=== PATIENT | male | born 1990 | race African-American/Black ===

== ENCOUNTER 2017-05-21 23:15 | Inpatient (IN) | payer SELFPAY ==
[2017-05-22 01:12] LABS: Bilirubin Negative (Negative); Blood, Urine Negative (Negative); Clarity CLEAR (Clear); Glucose, Urine (Dipstick) Negative (Negative); Leukocyte Negative (Negative); Nitrite Negative (Negative); Protein, Urine (Dipstick) Negative (Neg-Trace); Specific Gravity, Urine 1.019 (1.002-1.036); Urobilinogen 0.2 mg/dL (0.2-1.0)
[2017-05-22 01:13] LABS: #Lymphocytes 0.7 thou/uL (1.20-3.40); #Monocytes 0.3 thou/uL (0.11-0.59); #Neutrophils 3.7 thou/uL (1.40-6.50); %Basophils 0.5 % (0.0-1.0); %Eosinophils 0.1 % (0.0-10.0); %Lymphocytes 15.4 % (21.0-51.0); Hemoglobin 10.9 g/dL (14.0-18.0); Mean Corpuscular HGB CONC 34.4 g/dL (32.0-36.0); Mean Corpuscular Hemoglobin 31.2 pg (27.0-31.0); Mean Corpuscular Volume 90.7 fl (80.0-94.0); Mean Platelet Volume 7.3 fL (7.4-10.4); Platelet Count 157 thou/uL (130-400); RBC Distribution Width 11.9 % (11.5-14.5); Red Blood Cell (RBC) Count 3.51 mill/uL (4.70-6.10); White Blood Cell (WBC) Count 4.8 thou/uL (4.8-10.8)
[2017-05-22 01:34] LABS: ALT (SGPT) 11 U/L (8-55); AST (SGOT) 23 U/L (5-34); Albumin 4.1 g/dL (3.5-5.0); Alkaline Phosphatase 45 U/L (40-150); Anion Gap 15 mmol/L (10-20); BUN (Urea Nitrogen) 16 mg/dL (8.9-20.6); Bilirubin, Total 0.6 mg/dL (0.2-1.2); Calc. Creatinine Clearance 0 mL/min (70-130); Calcium 8.7 mg/dL (7.8-10.44); Carbon Dioxide 19 mmol/L (22-29); Chloride 108 mmol/L (98-107); Estimated GFR-MDRD Greater than 90; Globulin 2.5 g/dL (2.4-3.5); Glucose 64 mg/dL (70-105); Lipase 23 U/L (8-78); Magnesium 1.8 mg/dL (1.6-2.6); Potassium 3.9 mmol/L (3.5-5.1); Protein, Total 6.6 g/dL (6.0-8.3); Sodium 138 mmol/L (136-145)
[2017-05-22] MEDS ORDERED: VANCOMYCIN HCL IVPB SCH (03:45)
[2017-05-22] MEDS ORDERED: SODIUM CHLORIDE 0.9% IVPB SCH ×2 (03:45→04:00)
[2017-05-22] MEDS ORDERED: MEROPENEM IVPB SCH (04:00)
[2017-05-22] MEDS ORDERED: Hydrocortisone Sod Succ/PF 100 mg/2 ml Vial IVP SCH (04:00)
[2017-05-22] MEDS ORDERED: Acetaminophen 325 MG TAB PO PRN (04:50)
[2017-05-22] MEDS ORDERED: Ondansetron HCl/PF 4 MG/2 ML Vial IVP PRN (04:50)
[2017-05-22] MEDS ORDERED: Ondansetron ODT 4 MG TAB SL PRN (04:50)
[2017-05-22] MEDS: Sodium Chloride 0.9% 1,000 ML IV SCH ×2 (05:19→14:48)
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
[2017-05-22 11:22] VITALS: BMI 17.0
[2017-05-22] MEDS ORDERED: HYDROcodone/Acetaminophen 5/325 mg Tablet PO PRN (12:05)
[2017-05-22] MEDS ORDERED: Sodium Chloride 0.9% 1,000 ML IV SCH (12:15)
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
[2017-05-22] MEDS ORDERED: ISOVUE-370 76%-LOCM 1 ML ONE (13:22)
[2017-05-22] MEDS ORDERED: Iopamidol 370 76% 50 ML VIAL FS ONE (13:22)
[2017-05-22] MEDS: Hydrocortisone Sod Succ/PF 100 mg/2 ml Vial IVP SCH ×2 (14:50→21:32)
[2017-05-22] MEDS: Famotidine 40 MG/4 ML VIAL SLOW IVP SCH (20:12)
[2017-05-22] MEDS ORDERED: Famotidine/PF 20 mg/2ml Vial SLOW IVP SCH (21:00)
[2017-05-22] MEDS ORDERED: Loperamide HCl 2 MG CAP PO PRN ×2 (21:20)
--- NOTE | 2017-05-22 23:16 | PDOC.EVN ---
Event Note - Event Note Event Note: RN called to address IVF. ER orders gets discontinued 12 hrs after admission. Will start 1/2 NS @ 75 ml/hr. AM to address further adjustment of IVF.
[2017-05-22] MEDS: Sodium Chloride 0.45% 1,000 ML IV SCH (23:43)
[2017-05-23 04:42] LABS: #Basophils 0.1 thou/uL (0.0-0.2); #Lymphocytes 0.7 thou/uL (1.20-3.40); #Monocytes 0.2 thou/uL (0.11-0.59); #Neutrophils 5.5 thou/uL (1.40-6.50); %Basophils 1.3 % (0.0-1.0); %Eosinophils 0.1 % (0.0-10.0); %Lymphocytes 11.4 % (21.0-51.0); %Neutrophils 84.3 % (42.0-75.0); Hemoglobin 9.2 g/dL (14.0-18.0); Mean Corpuscular HGB CONC 33.9 g/dL (32.0-36.0); Mean Corpuscular Hemoglobin 31.2 pg (27.0-31.0); Mean Corpuscular Volume 91.8 fl (80.0-94.0); Mean Platelet Volume 7.6 fL (7.4-10.4); Platelet Count 141 thou/uL (130-400); RBC Distribution Width 11.9 % (11.5-14.5); Red Blood Cell (RBC) Count 2.96 mill/uL (4.70-6.10); White Blood Cell (WBC) Count 6.5 thou/uL (4.8-10.8)
[2017-05-23 04:50] LABS: Anion Gap 10 mmol/L (10-20); BUN (Urea Nitrogen) 11 mg/dL (8.9-20.6); Calc. Creatinine Clearance 81 mL/min (70-130); Calcium 7.9 mg/dL (7.8-10.44); Carbon Dioxide 21 mmol/L (22-29); Chloride 110 mmol/L (98-107); Estimated GFR-MDRD Greater than 90; Glucose 120 mg/dL (70-105); Potassium 3.5 mmol/L (3.5-5.1); Sodium 137 mmol/L (136-145)
[2017-05-23] MEDS: Hydrocortisone Sod Succ/PF 100 mg/2 ml Vial IVP SCH ×3 (05:32→21:26)
[2017-05-23] MEDS ORDERED: CLOMIPHENE CITRATE 50 MG PO SCH (09:00)
[2017-05-23] MEDS ORDERED: FLU VACC QS2017-18 36 mo. & older 0.5 ML SYRINGE IM ONE (09:00)
[2017-05-23] MEDS: Enoxaparin Sodium 40 MG/0.4 ML SYRINGE SC SCH (09:27)
[2017-05-23] MEDS: Famotidine 40 MG/4 ML VIAL SLOW IVP SCH ×2 (09:28→21:26)
--- NOTE | 2017-05-23 13:07 | PDOC.PN ---
- Subjective Encounter Start Date: 05/23/17 Encounter Start Time: 10:30 Patient is seen today, sititng in chaiur and having lunch, pt is alert and oriented. mother in the room. - Objective Resuscitation Status: Resuscitation Status FULL:Full Resuscitation MAR Reviewed: Yes Vital Signs & Weight: Vital Signs (12 hours) Temp Pulse Resp BP Pulse Ox 05/23/17 09:36 98.5 F 78 16 97 05/23/17 07:39 98.5 F 78 16 113/76 97 05/23/17 04:10 98.6 F 76 16 107/69 98 Weight Admit Weight 78 lb 11.2 oz Weight 78 lb 11.2 oz I&O: 05/22/17 05/23/17 05/24/17 06:59 06:59 06:59 Intake Total 4300 Balance 4300 Result Diagrams: 05/23/17 03:51 05/23/17 03:51 Phys Exam - Physical Examination HEENT: PERRLA, moist MMs Neck: no nodes, no JVD Respiratory: no wheezing, no rales Cardiovascular: RRR, no significant murmur Gastrointestinal: soft, non-tender Musculoskeletal: no edema, pulses present Neurological: non-focal Psychiatric: normal affect, A&O x 3 Dx/Plan (1) Septic shock Code(s): A41.9 - SEPSIS, UNSPECIFIED ORGANISM; R65.21 - SEVERE SEPSIS WITH SEPTIC SHOCK Status: Acute Comment: Pt has posiitve lactoferrin in stool, but no organism identified, Cdiff neg, Campylo neg, stool culture pending, normal WBC, blood pressures improved on IV steroids. (2) Secondary adrenal insufficiency Code(s): E27.49 - OTHER ADRENOCORTICAL INSUFFICIENCY Status: Acute Comment: Will taper steroids to 25mg BID today and change to po tomorrow. (3) Acute gastroenteritis Code(s): K52.9 - NONINFECTIVE GASTROENTERITIS AND COLITIS, UNSPECIFIED Status : Acute Comment: WBC in stool, likely infectious diarrhea, continue Abx and taper to narrow spectrum Abx. (4) Moderate dehydration Code(s): E86.0 - DEHYDRATION Status: Acute Comment: improved, will slow down IV fluids. encourage oral hydration. - Plan cont current plan of care, plan discussed w/ family, continue antibiotics, PT/OT , out of bed/ambulate, DVT proph w/SCDs * . - Discharge Day Encounter end time: 11:05 Review of Systems - Review of Systems Constitutional: weakness Eyes: negative: Pain, Vision Change, Conjunctivae Inflammation, Eyelid Inflammation, Redness, Other ENT: negative: Ear Pain, Ear Discharge, Nose Pain, Nose Discharge, Nose Congestion, Mouth Pain, Mouth Swelling, Throat Pain, Throat Swelling, Other Respiratory: negative: Cough, Dry, Shortness of Breath, Hemoptysis, SOB with Excertion, Pleuritic Pain, Sputum, Wheezing Cardiovascular: negative: chest pain, palpitations, orthopnea, paroxysmal nocturnal dyspnea, edema, light headedness, other Gastrointestinal: Diarrhea (watery with mucus) Genitourinary: negative: Dysuria, Frequency, Incontinence, Hematuria, Retention , Other Musculoskeletal: negative: Neck Pain, Shoulder Pain, Arm Pain, Back Pain, Hand Pain, Leg Pain, Foot Pain, Other Skin: negative: Rash, Lesions, Channing, Bruising, Other - Medications/Allergies Allergies/Adverse Reactions: Allergies Allergy/AdvReac Type Severity Reaction Status Date / Time No Known Allergies Allergy Verified 05/22/17 04:55 Medications: Current Medications Hydrocodone Bitart/Acetaminophen ([place] 5/325) 1 tab PO Q4H PRN PRN Reason: Moderate Pain (4-6) Enoxaparin Sodium (Lovenox) 40 mg SC 0900 [facility] Last Admin: 05/23/17 09:27 Dose: 40 mg Famotidine (Pepcid) 20 mg SLOW IVP Q12HR [facility] Last Admin: 05/23/17 09:28 Dose: 20 mg Hydrocortisone Sodium Succinate (Solu-Cortef) 25 mg IVP Q8HR [facility] Sodium Chloride (1/2 Normal Saline) 1,000 mls @ 75 mls/hr IV .[id number] [facility] Last Admin: 05/22/17 23:43 Dose: 1,000 mls Loperamide HCl (Imodium) 2 mg PO PRN PRN PRN Reason: Diarrhea/Loose Stools [Clomiphene Citrate] (50 Mg) 0 each PO DAILY [facility] Sodium Chloride (Flush - Normal Saline) 10 ml IVF Q12HR [facility] Last Admin: 05/23/17 09:31 Dose: Not Given Sodium Chloride (Flush - Normal Saline) 10 ml IVF PRN PRN PRN Reason: Saline Flush
[2017-05-23] MEDS: Sodium Chloride 0.45% 1,000 ML IV SCH ×2 (13:26→21:27)
[2017-05-23] MEDS: metroNIDAZOLE 500 MG in Premix Bag 1 BAG IVPB SCH ×2 (17:46→23:08)
[2017-05-23] MEDS: CLOMIPHENE CITRATE 50 MG PO SCH (23:07)
[2017-05-24] MEDS: Hydrocortisone Sod Succ/PF 100 mg/2 ml Vial IVP SCH (05:38)
[2017-05-24] MEDS: metroNIDAZOLE 500 MG in Premix Bag 1 BAG IVPB SCH ×4 (05:40→22:12)
[2017-05-24] MEDS: Enoxaparin Sodium 40 MG/0.4 ML SYRINGE SC SCH (09:05)
[2017-05-24] MEDS: CLOMIPHENE CITRATE 50 MG PO SCH (09:06)
[2017-05-24] MEDS: Famotidine 40 MG/4 ML VIAL SLOW IVP SCH ×2 (11:20→22:10)
--- NOTE | 2017-05-24 13:59 | PDOC.PN ---
- Subjective Encounter Start Date: 05/24/17 Encounter Start Time: 10:30 Patient is seen today, alert and oriented. No other concern noted - Objective Resuscitation Status: Resuscitation Status FULL:Full Resuscitation Vital Signs & Weight: Vital Signs (12 hours) Temp Pulse Resp BP Pulse Ox 05/24/17 08:00 98.3 F 46 L 16 98 05/24/17 07:47 98.3 F 46 L 16 117/75 98 Weight Admit Weight 78 lb 11.2 oz Weight 78 lb 11.2 oz I&O: 05/23/17 05/24/17 05/25/17 06:59 06:59 06:59 Intake Total 4300 2430 Output Total 500 Balance 4300 1930 Result Diagrams: 05/23/17 03:51 05/23/17 03:51 Phys Exam - Physical Examination HEENT: PERRLA, moist MMs Neck: no nodes, no JVD Respiratory: no wheezing, no rales Cardiovascular: RRR, no significant murmur Gastrointestinal: soft, non-tender Musculoskeletal: edema present (both lower extremitis) Dx/Plan (1) Sinus bradycardia Code(s): R00.1 - BRADYCARDIA, UNSPECIFIED Status: Acute Comment: asymptomatic, normal Blood pressure, will closley Monitor if drops less then 50 will order Echo (2) Septic shock Code(s): A41.9 - SEPSIS, UNSPECIFIED ORGANISM; R65.21 - SEVERE SEPSIS WITH SEPTIC SHOCK Status: Acute Comment: Pt has posiitve lactoferrin in stool, but no organism identified, Cdiff neg, Campylo neg, stool culture pending, normal WBC, blood pressures improved on IV steroids. (3) Secondary adrenal insufficiency Code(s): E27.49 - OTHER ADRENOCORTICAL INSUFFICIENCY Status: Acute Comment: changed to po home dose. Will monitor closley if patient Blood pressure falls will restart on Steroids with slow taper.. (4) Acute gastroenteritis Code(s): K52.9 - NONINFECTIVE GASTROENTERITIS AND COLITIS, UNSPECIFIED Status : Acute Comment: WBC in stool, likely infectious diarrhea, continue Abx and taper to narrow spectrum Abx. improved . (5) Moderate dehydration Code(s): E86.0 - DEHYDRATION Status: Acute Comment: improved, will slow down IV fluids. encourage oral hydration. (6) Dizziness of unknown cause Code(s): R42 - DIZZINESS AND GIDDINESS Status: Acute Comment: Likely orthostatic from volume depletion.will do orthostatic vitals. - Plan cont current plan of care, plan discussed w/ family, continue antibiotics, PT/OT , social security benefits interviewer, incentive spirometry, out of bed/ambulate, DVT proph w/ lovenox * . - Discharge Day Encounter end time: 10:35 Review of Systems - Review of Systems Constitutional: weakness, malaise Eyes: negative: Pain, Vision Change, Conjunctivae Inflammation, Eyelid Inflammation, Redness, Other ENT: negative: Ear Pain, Ear Discharge, Nose Pain, Nose Discharge, Nose Congestion, Mouth Pain, Mouth Swelling, Throat Pain, Throat Swelling, Other Respiratory: negative: Cough, Dry, Shortness of Breath, Hemoptysis, SOB with Excertion, Pleuritic Pain, Sputum, Wheezing Cardiovascular: light headedness Gastrointestinal: negative: Nausea, Vomiting, Abdominal Pain, Diarrhea, Constipation, Melena, Hematochezia, Other Genitourinary: negative: Dysuria, Frequency, Incontinence, Hematuria, Retention , Other Musculoskeletal: negative: Neck Pain, Shoulder Pain, Arm Pain, Back Pain, Hand Pain, Leg Pain, Foot Pain, Other Skin: negative: Rash, Lesions, Channing, Bruising, Other - Medications/Allergies Allergies/Adverse Reactions: Allergies Allergy/AdvReac Type Severity Reaction Status Date / Time No Known Allergies Allergy Verified 05/22/17 04:55 Medications: Current Medications Hydrocodone Bitart/Acetaminophen ([place] 5/325) 1 tab PO Q4H PRN PRN Reason: Moderate Pain (4-6) Enoxaparin Sodium (Lovenox) 40 mg SC 0900 [facility] Last Admin: 05/24/17 09:05 Dose: 40 mg Famotidine (Pepcid) 20 mg SLOW IVP Q12HR [facility] Last Admin: 05/24/17 11:20 Dose: 20 mg Hydrocortisone (Cortef) 7.5 mg PO QAM[facility] Hydrocortisone (Cortef) 5 mg PO QPM[facility] Sodium Chloride (1/2 Normal Saline) 1,000 mls @ 75 mls/hr IV .[id number] [facility] Last Admin: 05/23/17 21:27 Dose: 1,000 mls Metronidazole 500 mg/ Device 100 mls @ 100 mls/hr IVPB Q6HR [facility] Last Admin: 05/24/17 11:20 Dose: 100 mls Loperamide HCl (Imodium) 2 mg PO PRN PRN PRN Reason: Diarrhea/Loose Stools Last Admin: 05/23/17 17:52 Dose: 2 mg [Clomiphene Citrate] (50 Mg) 1 each PO DAILY [facility] Last Admin: 05/24/17 09:06 Dose: Not Given Sodium Chloride (Flush - Normal Saline) 10 ml IVF Q12HR [facility] Last Admin: 05/24/17 09:06 Dose: 10 ml Sodium Chloride (Flush - Normal Saline) 10 ml IVF PRN PRN PRN Reason: Saline Flush
[2017-05-24] MEDS ORDERED: Hydrocortisone 10 mg Tablet PO SCH (17:00)
[2017-05-24] MEDS: Sodium Chloride 0.45% 1,000 ML IV SCH (17:30)
[2017-05-25] MEDS: metroNIDAZOLE 500 MG in Premix Bag 1 BAG IVPB SCH ×2 (05:35→12:36)
[2017-05-25] MEDS ORDERED: Hydrocortisone 10 mg Tablet PO SCH (08:00)
[2017-05-25] MEDS: CLOMIPHENE CITRATE 50 MG PO SCH (09:00)
[2017-05-25] MEDS: Enoxaparin Sodium 40 MG/0.4 ML SYRINGE SC SCH (09:35)
[2017-05-25] MEDS: Famotidine 40 MG/4 ML VIAL SLOW IVP SCH (09:36)
[2017-05-25 14:48] VITALS: BP 120/83; TEMP 98.3
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
== END 2017-05-25 14:54 | disposition home or self-care (01) | DRG 871 ==
LOC: ERS 23:15 → T4-A 05-22 03:30
PROVIDERS: ADMIT Internal Medicine; ATTEND Internal Medicine
DX: A41.9 Sepsis, unspecified organism (principal); R65.21 Severe sepsis with septic shock; E27.40 Unspecified adrenocortical insufficiency; E23.0 Hypopituitarism; E86.0 Dehydration; E16.2 Hypoglycemia, unspecified; D63.8 Anemia in other chronic diseases classified elsewhere; I95.1 Orthostatic hypotension
CPT/HCPCS: 36415; 74177; 80048; 80053; 81003; 82533; 83630; 83690; 83735; 84145; 85025; 86140; 87040; 87045; 87046; 87086; 87324; 87449; 87633; 87899; 90471; 90682; 93005; 96361; 96365; A4216; G0008; J1650; J1720; J2185; J3370; J7050; Q2036

== ENCOUNTER 2017-05-25 20:14 | Inpatient (IN) | payer SELFPAY ==
[2017-05-25 21:21] LABS: ALT (SGPT) 18 U/L (8-55); AST (SGOT) 23 U/L (5-34); Albumin 3.6 g/dL (3.5-5.0); Alkaline Phosphatase 40 U/L (40-150); Anion Gap 13 mmol/L (10-20); BUN (Urea Nitrogen) 13 mg/dL (8.9-20.6); Bilirubin, Total 0.4 mg/dL (0.2-1.2); Calc. Creatinine Clearance 0 mL/min (70-130); Calcium 8.3 mg/dL (7.8-10.44); Carbon Dioxide 24 mmol/L (22-29); Chloride 105 mmol/L (98-107); Estimated GFR-MDRD Greater than 90; Globulin 2.2 g/dL (2.4-3.5); Glucose 82 mg/dL (70-105); Lipase 192 U/L (8-78); Potassium 3.4 mmol/L (3.5-5.1); Protein, Total 5.8 g/dL (6.0-8.3); Sodium 139 mmol/L (136-145)
[2017-05-25 21:23] LABS: Bilirubin Negative (Negative); Blood, Urine Negative (Negative); Clarity CLEAR (Clear); Glucose, Urine (Dipstick) Negative (Negative); Protein, Urine (Dipstick) Negative (Neg-Trace); Urobilinogen 0.2 mg/dL (0.2-1.0)
[2017-05-25 21:24] LABS: Bacteria/HPF None Seen HPF (None Seen); Hyaline Casts/LPF 0-3 HYALINE CAST LPF (0-3 Hyaline); RBC/HPF None Seen HPF (0-3); Squamous Epithelial None Seen HPF (0-3); WBC/HPF 0-3 HPF (0-3)
[2017-05-25 21:31] LABS: Leukocyte Unable to Interpret (Negative); Nitrite Unable to Interpret (Negative); Specific Gravity, Urine 1.017 (1.002-1.036)
[2017-05-25 21:58] LABS: Band 16 % (5-11); Hemoglobin 10.2 g/dL (14.0-18.0); Lymphocytes 30 % (21-51); MDiff Complete? YES; Mean Corpuscular HGB CONC 34.3 g/dL (32.0-36.0); Mean Corpuscular Hemoglobin 31.9 pg (27.0-31.0); Mean Corpuscular Volume 92.9 fl (80.0-94.0); Mean Platelet Volume 7.5 fL (7.4-10.4); Metamyelocyte 2 % (0-0); Monocytes 6 % (0-10); Myelocyte 1 % (0-0); Neutrophil 45 % (42-75); PLT Morphology Comment Appears Adequate; Platelet Count 183 thou/uL (130-400); RBC Distribution Width 12.1 % (11.5-14.5); Red Blood Cell (RBC) Count 3.19 mill/uL (4.70-6.10); White Blood Cell (WBC) Count 10.7 thou/uL (4.8-10.8)
[2017-05-25] MEDS ORDERED: Hydrocortisone Sod Succ/PF 100 mg/2 ml Vial ONE (22:22)
[2017-05-26] MEDS ORDERED: Ondansetron ODT 4 MG TAB SL PRN
[2017-05-26] MEDS ORDERED: Sodium Chloride 0.9% 1,000 ML IV SCH
[2017-05-26] MEDS ORDERED: Ondansetron HCl/PF 4 MG/2 ML Vial IVP PRN
[2017-05-26] MEDS ORDERED: Acetaminophen 650 MG Suppository PR PRN (04:15)
[2017-05-26] MEDS ORDERED: Acetaminophen 325 MG TAB PO PRN (04:15)
[2017-05-26] MEDS: Sodium Chloride 0.9% 1,000 ML IV SCH ×3 (04:46→21:25)
[2017-05-26] MEDS: Hydrocortisone Sod Succ/PF 100 mg/2 ml Vial IVP SCH ×3 (05:04→20:55)
[2017-05-26 05:27] LABS: Band 7 % (5-11); Hemoglobin 9.7 g/dL (14.0-18.0); Lymphocytes 31 % (21-51); MDiff Complete? YES; Mean Corpuscular HGB CONC 33.5 g/dL (32.0-36.0); Mean Corpuscular Hemoglobin 31.2 pg (27.0-31.0); Metamyelocyte 1 % (0-0); Monocytes 8 % (0-10); Myelocyte 2 % (0-0); Neutrophil 50 % (42-75); PLT Morphology Comment Appears Adequate; Platelet Count 168 thou/uL (130-400); RBC Distribution Width 12.1 % (11.5-14.5); Reactive Lymphocytes 1 % (0-10); Red Blood Cell (RBC) Count 3.12 mill/uL (4.70-6.10); White Blood Cell (WBC) Count 9.4 thou/uL (4.8-10.8)
[2017-05-26 05:45] LABS: Anion Gap 10 mmol/L (10-20); BUN (Urea Nitrogen) 14 mg/dL (8.9-20.6); Calc. Creatinine Clearance 93 mL/min (70-130); Calcium 8.3 mg/dL (7.8-10.44); Carbon Dioxide 27 mmol/L (22-29); Chloride 104 mmol/L (98-107); Estimated GFR-MDRD Greater than 90; Glucose 92 mg/dL (70-105); Potassium 3.3 mmol/L (3.5-5.1); Sodium 138 mmol/L (136-145)
[2017-05-26] MEDS ORDERED: metroNIDAZOLE 500 MG in Premix Bag 1 BAG IVPB SCH (06:00)
[2017-05-26] MEDS ORDERED: Hydrocortisone Sod Succ/PF 100 mg/2 ml Vial IVP SCH (06:00)
--- NOTE | 2017-05-26 06:01 | HP ---
DATE OF ADMISSION: 05/26/2017 TIME OF SERVICE: 04:05. PRIMARY CARE PHYSICIAN: Dr. Effie Landrum. PRIMARY REGIONAL HR MANAGER: Dr. Alfaro. CHIEF COMPLAINT: Recurrent nausea, vomiting. HISTORY OF PRESENT ILLNESS: Mr. 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 He was actually admitted here for the last 4 days from 05/22/2017 to 05/25/2017 and discharged on 05/25/2017 in the afternoon. He was here for nausea, vomiting, and diarrhea and was diagnosed with acute gastroenteritis. Stool studies during that stay were negative including Clostridium difficile, Campylobacter, salmonella and E. coli . He was discharged on metronidazole and at the time of discharge, mom said he was doing better. On arrival at home, he ate dinner and then started vomiting again. He felt hot and little dizzy, so she brought him back to the emergency department for evaluation. Here, white count was normal, though he did have a left shift with 16% bands. He was afebrile, but h eart rate was extremely low in the high 30s to low 40s. Due to his history of adrenal insufficiency, we were called for admission to watch. Patient had recently been on hydrocortisone and transitioned back to oral hydrocortisone at his home dose on discharge. He took one dose of metronidazole and was nauseated afterwards. PAST MEDICAL HISTORY: 1. 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 2. 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 PAST SURGICAL HISTORY: Includes, 1. Brain surgery x2 at the age of 7. 2. EVD removal at age 7. HOME MEDICATIONS: 1. Hydrocortisone 7.5 mg p.o. q.a.m., 5 mg p.o. q.p.m. 2. Clomiphene 50 mg p.o. daily. 3. Metronidazole 500 mg p.o. t.i.d. ALLERGIES: No known drug allergies. FAMILY HISTORY: Negative for clotting or bleeding disorder, no immune dysfunction. SOCIAL HISTORY: Negative for habits x3. Mom and dad are with him in the room. REVIEW OF SYSTEMS: A 10-point review of systems was performed. Significant for scrotal edema, but a ll other systems reviewed were negative except as stated above. PHYSICAL EXAMINATION: VITAL SIGNS: In the ER, temperature is 98.8, pulse 43, blood pressure 109/78, respiratory rate 16, s atting 100% on room air. GENERAL: He is awake. He is alert. He is oriented x3. He is a small appearing almost childlike Af rican-[place] male. He appears to be in no acute distress. HEENT: Head is normocephalic, atraumatic. His pupils are equal, round, reactive to light bilaterall y. Mucous membranes are moist. No visible lesions. No thrush. NECK: Supple with no lymphadenopathy, JVD or thyromegaly. He has normal carotid upstrokes without b ruits. LUNGS: Clear. He has good air movement. Symmetrical chest excursion. There is no prolonged expira tory phase. There are no wheezes, rales or rhonchi. CARDIOVASCULAR: He is bradycardic and regular. His heart rates in the high 30s to low 40s. He has no audible murmurs. ABDOMEN: Soft. It is mildly tender diffusely. There is no rebound, rigidity, or guarding. He has hyperactive bowel sounds present in all 4 quadrants. GENITOURINARY: Shows a circumcised male. He does have some minimal scrotal edema. EXTREMITIES: No cyanosis, no clubbing, no edema. SKIN: Warm, moist, and well perfused. He has no rashes or lesions. NEUROLOGIC: Cranial nerves II through XII are grossly intact. He has no focal neurologic deficits, 4-5/5 strength and normal speech. MUSCULOSKELETAL: Normal to inspection. He has no joint inflammation and no palpable effusions. LABORATORY DATA: Sodium is 139, potassium 3.4, chloride 105, bicarbonate 24, BUN 13, creatinine 0.74 , glucose of 82. Liver functions are completely within normal limits. CBC showed a white count of 10.7, hemoglobin is 10.2, up from 9.2 two days ago which was down 1.5 gra ms on 05/22. It has dropped from 05/21/2017 was 12.2, 05/22/2017 was 10.9, 05/23/2017 was 9.2, and 0 05/25/2017 was 10.2. Platelet count is 183,000. Differential showed 45% granulocytes, 16% bands, 2% myelocytes, and 1% metamyelocytes. RADIOGRAPHIC STUDIES: None. ASSESSMENT AND PLAN: 1. Acute gastroenteritis. Patient seemed to worsen after going home. I suspect that either the met ronidazole was covering what needs to be covered or maybe making him more nauseated. We will stop th e metronidazole. We will transition to Cipro alone, which is a standard treatment for bacterial sahil roenteritis. We will watch how he tolerates this today. 2. Adrenal insufficiency. I will increase him back to hydrocortisone 25 mg q.8 hours. We will cont inue his clomiphene at home dosing. 3. Bradycardia. The patient seems to be in sinus bradycardia. He was in the 70s on initial admissi on, it was down to 40s now, not sure what his normal baseline is, so it does seem low and it was down as low as 38 when I was seeing him. I may need to get Cardiology to look. Certainly, he concerned about side effects of medications. 4. Scrotal edema likely secondary to hydrocortisone and fluids recently. He does not have any disco mfort there. I will continue to hydrate and continue steroids.
--- NOTE | 2017-05-26 14:15 | PDOC.PN ---
- Subjective Encounter Start Date: 05/26/17 Encounter Start Time: 13:50 Subjective: f/u for gastroenteritis and hypotension in context of adrenal insufficiency -: with chronic steroid use. Feels better overall and no diarrhea. States want -: to eat something. + flatus. - Objective Resuscitation Status: Resuscitation Status FULL:Full Resuscitation MAR Reviewed: Yes Vital Signs & Weight: Vital Signs (12 hours) Temp Pulse Resp BP Pulse Ox 05/26/17 12:03 98.3 F 52 L 16 92/59 L 98 05/26/17 07:30 98.1 F 44 L 16 103/69 98 05/26/17 04:00 97.5 F L 42 L 17 101/74 98 Weight Admit Weight 87 lb 8 oz Weight 87 lb 8 oz I&O: 05/25/17 05/26/17 05/27/17 06:59 06:59 06:59 Intake Total 250.5 Output Total 0 Balance 250.5 Result Diagrams: 05/26/17 01:30 05/26/17 01:30 Additional Labs: Laboratory Tests 05/25/17 05/25/17 05/25/17 20:45 21:22 21:22 WBC 10.7 Hgb 10.2 L Band Neuts % (Manual) 16 H Potassium 3.4 L Lactic Acid 2.1 Magnesium Lipase 192 H 05/26/17 05/26/17 05/26/17 01:30 01:30 01:30 WBC Hgb Band Neuts % (Manual) 7 Potassium Lactic Acid 1.0 Magnesium 2.0 Lipase EKG Reviewed by me: Yes (Tele - sinus bradycardia in 40's) Phys Exam - Physical Examination Constitutional: NAD responsive, alert, smiles HEENT: oral pharynx no lesions Neck: no JVD Respiratory: no wheezing, clear to auscultation bilateral Cardiovascular: RRR TTP in mid-epigastric region Gastrointestinal: soft, no distention, positive bowel sounds non-pitting edema of LE's Musculoskeletal: pulses present Neurological: normal sensation, moves all 4 limbs Skin: normal turgor, cap refill <2 seconds Deviation from normal: + scrotal edema Dx/Plan (1) Acute gastroenteritis Code(s): K52.9 - NONINFECTIVE GASTROENTERITIS AND COLITIS, UNSPECIFIED Status : Acute Comment: Improving, continue Cipro, supportive measures (2) Moderate dehydration Code(s): E86.0 - DEHYDRATION Status: Acute Comment: Resolved, hold IVF's (3) Secondary adrenal insufficiency Code(s): E27.49 - OTHER ADRENOCORTICAL INSUFFICIENCY Status: Acute Comment: Continue Hydrocortisone 25mg IV q8h then convert to po in next 24h (4) Septic shock Code(s): A41.9 - SEPSIS, UNSPECIFIED ORGANISM; R65.21 - SEVERE SEPSIS WITH SEPTIC SHOCK Status: Acute Comment: Resolved, continue Cipro as stated in # 1 (5) Sinus bradycardia Code(s): R00.1 - BRADYCARDIA, UNSPECIFIED Status: Acute Comment: asymptomatic, consider Echo if becomes symptomatic, replace KCL (6) Hypokalemia Code(s): E87.6 - HYPOKALEMIA Status: Acute Comment: Mild, KCL 40meq BID - Plan plan discussed w/ family, continue antibiotics Stable overall -: Start po intake -: KCL replacement -: Continue Hydrocortisone IV another 24h -: AM lab: CMP, CBC, Lipase * Likely home 05.27.17
[2017-05-27] MEDS: Sodium Chloride 0.9% 1,000 ML IV SCH ×2 (05:41→13:05)
[2017-05-27] MEDS: Hydrocortisone Sod Succ/PF 100 mg/2 ml Vial IVP SCH ×3 (05:45→21:14)
[2017-05-27 07:11] LABS: Hemoglobin 10.4 g/dL (14.0-18.0); Mean Corpuscular HGB CONC 33.4 g/dL (32.0-36.0); Mean Corpuscular Hemoglobin 30.5 pg (27.0-31.0); Mean Corpuscular Volume 91.4 fl (80.0-94.0); Mean Platelet Volume 7.8 fL (7.4-10.4); Platelet Count 190 thou/uL (130-400); Red Blood Cell (RBC) Count 3.41 mill/uL (4.70-6.10); White Blood Cell (WBC) Count 11.8 thou/uL (4.8-10.8)
[2017-05-27 07:21] LABS: ALT (SGPT) 18 U/L (8-55); AST (SGOT) 25 U/L (5-34); Albumin 3.1 g/dL (3.5-5.0); Alkaline Phosphatase 40 U/L (40-150); Anion Gap 11 mmol/L (10-20); BUN (Urea Nitrogen) 13 mg/dL (8.9-20.6); Bilirubin, Total 0.5 mg/dL (0.2-1.2); Calc. Creatinine Clearance 98 mL/min (70-130); Calcium 8.1 mg/dL (7.8-10.44); Carbon Dioxide 26 mmol/L (22-29); Chloride 104 mmol/L (98-107); Estimated GFR-MDRD Greater than 90; Glucose 103 mg/dL (70-105); Lipase 127 U/L (8-78); Potassium 3.8 mmol/L (3.5-5.1); Protein, Total 5.1 g/dL (6.0-8.3); Sodium 137 mmol/L (136-145)
[2017-05-27 07:41] LABS: Band 5 % (5-11); Lymphocytes 21 % (21-51); MDiff Complete? YES; Metamyelocyte 5 % (0-0); Monocytes 8 % (0-10); Myelocyte 2 % (0-0); Neutrophil 57 % (42-75); PLT Morphology Comment Appears Adequate; Reactive Lymphocytes 2 % (0-10); Toxic Granulation SLIGHT; Vacuoles SLIGHT
[2017-05-27] MEDS ORDERED: Potassium Chloride 20 MEQ TAB PO SCH (08:00)
--- NOTE | 2017-05-27 11:41 | PDOC.PN ---
- Subjective Encounter Start Date: 05/27/17 Encounter Start Time: 10:00 Subjective: pt up in bed, states he feels well today. He is not currently nauseated -: pt's diarrhea is improving -: complains of mild lightheadness on ambulation - Objective Resuscitation Status: Resuscitation Status FULL:Full Resuscitation MAR Reviewed: Yes Vital Signs & Weight: Vital Signs (12 hours) Temp Pulse Resp BP Pulse Ox 05/27/17 08:00 98.1 F 50 L 16 109/82 95 05/27/17 04:00 97.6 F 41 L 18 112/77 98 Weight Admit Weight 87 lb 8 oz Weight 87 lb 8 oz I&O: 05/26/17 05/27/17 05/28/17 06:59 06:59 06:59 Intake Total 250.5 1950 Output Total 0 250 Balance 250.5 1700 Result Diagrams: 05/27/17 06:46 05/27/17 06:46 Phys Exam - Physical Examination Respiratory: no wheezing, no rales, clear to auscultation bilateral Cardiovascular: RRR Gastrointestinal: soft (mild pain on palpation around epigastric area and RUQ) Musculoskeletal: edema present (mild pedal bilaterally) Neurological: non-focal, normal sensation, moves all 4 limbs Psychiatric: normal affect, A&O x 3 Dx/Plan (1) Acute gastroenteritis Code(s): K52.9 - NONINFECTIVE GASTROENTERITIS AND COLITIS, UNSPECIFIED Status : Acute Plan: will continue current tx with cipro. Pt is tolerating Po well and his stool is more formed now. Comment: Improving, continue Cipro, supportive measures (2) Dizziness of unknown cause Code(s): R42 - DIZZINESS AND GIDDINESS Status: Acute Plan: Most likley due to bradycardia, will check echo Comment: Likely orthostatic from volume depletion.will do orthostatic vitals. (3) Moderate dehydration Code(s): E86.0 - DEHYDRATION Status: Acute Plan: continue iv hydration for now until pt is able to tolerate his diet. Comment: Resolved, hold IVF's (4) Right upper quadrant abdominal pain Code(s): R10.11 - RIGHT UPPER QUADRANT PAIN Status: Acute Plan: pt has significant pain to his RUQ and epigastric area. will start him on pepcid and monitor to see if his pain resolves, if not will get RUQ in am. - Plan * .
[2017-05-27] MEDS: Famotidine 20 MG TAB PO SCH (21:05)
[2017-05-28] MEDS: Hydrocortisone Sod Succ/PF 100 mg/2 ml Vial IVP SCH ×2 (05:27→14:05)
[2017-05-28] MEDS: Sodium Chloride 0.9% 1,000 ML IV SCH ×2 (07:31→08:15)
[2017-05-28] MEDS: Famotidine 20 MG TAB PO SCH ×2 (08:14→20:57)
--- NOTE | 2017-05-28 15:26 | PDOC.PN ---
- Subjective Encounter Start Date: 05/28/17 Encounter Start Time: 11:30 Subjective: pt up in bed feels well today - Objective Resuscitation Status: Resuscitation Status FULL:Full Resuscitation Vital Signs & Weight: Vital Signs (12 hours) Temp Pulse Resp BP Pulse Ox 05/28/17 11:44 98 F 46 L 14 102/74 99 05/28/17 08:00 98.7 F 44 L 14 99 05/28/17 07:43 98.7 F 44 L 14 102/74 99 05/28/17 04:00 97.8 F 47 L 20 99/57 L 99 Weight Admit Weight 87 lb 8 oz Weight 93 lb 14.4 oz I&O: 05/27/17 05/28/17 05/29/17 06:59 06:59 06:59 Intake Total 1950 2405 Output Total 250 1075 Balance 1700 1330 Result Diagrams: 05/27/17 06:46 05/27/17 06:46 Phys Exam - Physical Examination HEENT: PERRLA Neck: no nodes Respiratory: no wheezing, no rales, no rhonchi Cardiovascular: RRR, no significant murmur Gastrointestinal: soft, non-tender Musculoskeletal: no edema Neurological: non-focal Psychiatric: normal affect, A&O x 3 Dx/Plan (1) Acute gastroenteritis Code(s): K52.9 - NONINFECTIVE GASTROENTERITIS AND COLITIS, UNSPECIFIED Status : Acute Comment: Improving, continue Cipro, supportive measures pt's stool is more formed and frequency has improved (2) Dizziness of unknown cause Code(s): R42 - DIZZINESS AND GIDDINESS Status: Acute Comment: Likely orthostatic from volume depletion.will do orthostatic vitals. echo pending (3) Moderate dehydration Code(s): E86.0 - DEHYDRATION Status: Acute Comment: Resolved, hold IVF's (4) Right upper quadrant abdominal pain Code(s): R10.11 - RIGHT UPPER QUADRANT PAIN Status: Acute Plan: pt has no more pain to her RUQ (5) Secondary adrenal insufficiency Code(s): E27.49 - OTHER ADRENOCORTICAL INSUFFICIENCY Status: Acute Plan: will change steroids from iv to oral. called pt's endocrine physician about pt' s abnormal thyroid results. pt was on synthroid in the past and was taken off. Comment: Continue Hydrocortisone 25mg IV q8h then convert to po in next 24h changed to hydrocortisone 25mg bid oral on 05/28 - Plan * .
[2017-05-28] MEDS: Hydrocortisone 10 mg Tablet PO SCH (20:56)
[2017-05-29 07:02] VITALS: BP 107/75; TEMP 97.9
[2017-05-29] MEDS: Famotidine 20 MG TAB PO SCH (08:23)
[2017-05-29] MEDS: Hydrocortisone 10 mg Tablet PO SCH (08:23)
[2017-05-29 09:10] VITALS: BMI 19.2
[2017-05-29 09:42] LABS: ALT (SGPT) 27 U/L (8-55); AST (SGOT) 29 U/L (5-34); Albumin 3.5 g/dL (3.5-5.0); Alkaline Phosphatase 49 U/L (40-150); Anion Gap 9 mmol/L (10-20); BUN (Urea Nitrogen) 10 mg/dL (8.9-20.6); Bilirubin, Total 0.5 mg/dL (0.2-1.2); Calc. Creatinine Clearance 98 mL/min (70-130); Calcium 8.6 mg/dL (7.8-10.44); Carbon Dioxide 29 mmol/L (22-29); Chloride 102 mmol/L (98-107); Estimated GFR-MDRD Greater than 90; Globulin 2.6 g/dL (2.4-3.5); Glucose 113 mg/dL (70-105); Potassium 3.7 mmol/L (3.5-5.1); Protein, Total 6.1 g/dL (6.0-8.3); Sodium 136 mmol/L (136-145)
[2017-05-29 09:50] LABS: Band 10 % (5-11); Hemoglobin 11.9 g/dL (14.0-18.0); Lymphocytes 21 % (21-51); MDiff Complete? YES; Mean Corpuscular HGB CONC 33.1 g/dL (32.0-36.0); Mean Corpuscular Hemoglobin 30.8 pg (27.0-31.0); Mean Corpuscular Volume 93.1 fl (80.0-94.0); Mean Platelet Volume 7.9 fL (7.4-10.4); Metamyelocyte 6 % (0-0); Monocytes 2 % (0-10); Myelocyte 1 % (0-0); Neutrophil 59 % (42-75); Nucleated RBC 1 % (0); Platelet Count 264 thou/uL (130-400); RBC Distribution Width 12.8 % (11.5-14.5); RBC Morphology Normal; Reactive Lymphocytes 1 % (0-10); Red Blood Cell (RBC) Count 3.86 mill/uL (4.70-6.10); White Blood Cell (WBC) Count 12.8 thou/uL (4.8-10.8)
--- NOTE | 2017-05-29 14:15 | DIS ---
DATE OF ADMISSION: 05/26/2017 DATE OF DISCHARGE: 05/29/2017 DISCHARGE DIAGNOSES: 1. Acute most likely viral gastroenteritis. 2. Nausea, vomiting. 3. Abdominal pain. SECONDARY DIAGNOSES: 1. History of hypopituitarism. 2. Secondary adrenal insufficiency. 3. Stunted growth. SUMMARY OF HOSPITAL COURSE: The patient is a very pleasant 26-year-old who looks very younger than h is stated age. Initially he came into the hospital earlier in May with complaints of nausea, vo miting and diarrhea. The patient was treated as possible sepsis and was discharged home initially wi Flagyl. However, a few days later he came back again with nausea, vomiting, diarrhea and possible dehydration. The patient was initially put on IV fluids. His antibiotics was switched to Cipro fro m Flagyl. Microbiology marino all the stool cultures were negative. C. diff also was negative; howeve r, there was some elevated fecal lactoferrin. Respiratory viral panel also was done and it was negat summer. The patient initially was put on high dose hydrocortisone IV 25 mg every 8 hours which was rose calated to hydrocortisone 25 mg p.o. b.i.d. The patient normally takes hydrocortisone 7.5 mg in the morning and 5 mg at night, which was increased to 50 mg hydrocortisone in the morning and 10 mg at rust. I also checked his thyroid function, his TSH, free T4 and free T3 were very low. I did call his regroover, Dr. Alfaro and left a message with the confidential secretary stating that those were the resu lts of his thyroid function and I was made aware that he was at a point on levothyroxine; however, wa s taken off. I did not receive a call back in order to restart the Synthroid. I asked the patient's mother to make sure the patient follows up with regroover and also with the primary care jagjit martinez. The patient also was found to be bradycardic; however, he initially had some dizziness. An echocardi ogram was done. Echocardiogram was essentially normal. He did not have any arrhythmia. The patient 's EF was 60-65% with no significant valvular abnormalities were noted. The patient was asked to fol low up with the PCP. Mother did state that she does have some financial problems which I did call fi ayleen help; however, I did not receive a phone call back. I do not think at this point, the patien t needs Cardiology. His echo was normal. However, if patient does become symptomatic, he may requir e intervention or follow up with a video games storywriter. DISCHARGE MEDICATIONS: The patient's discharge medications were ciprofloxacin 500 mg p.o. twice a da y for an additional 4 days, hydrocortisone 50 mg in the morning and 10 mg at night, which should be w eaned off to his baseline of 7.5 in the morning and 5 at night. The patient also was put on Pepcid t wice a day. PHYSICAL EXAMINATION: GENERAL: The patient is awake, alert, oriented x3. ABDOMEN: He is able to eat and has soft bowel movements. Abdomen nontender. Bowel sounds are prese nt x2. RESPIRATORY: Clear to auscultation. No rhonchi or wheezes noted.
--- NOTE | 2017-06-21 17:13 | EKG ---
Test Reason : Blood Pressure : / mmHG Vent. Rate : 043 BPM Atrial Rate : 043 BPM P-R Int : 114 ms QRS Dur : 076 ms QT Int : 488 ms P-R-T Axes : 018 083 027 degrees QTc Int : 412 ms Marked sinus bradycardia T wave abnormality, consider anterior ischemia Abnormal ECG Unchanged from #1 Confirmed by YOKO LOBATO, RADHA ([id number]), television news video editor PETE SIERRA ([id number]) on 06/21/2017 5:13:24 PM Referred By: Confirmed By:RADHA BABCOCK MD
--- NOTE | 2017-06-21 17:13 | EKG ---
Test Reason : Blood Pressure : / mmHG Vent. Rate : 042 BPM Atrial Rate : 042 BPM P-R Int : 120 ms QRS Dur : 082 ms QT Int : 492 ms P-R-T Axes : 008 079 005 degrees QTc Int : 410 ms Marked sinus bradycardia T wave abnormality, consider anterior ischemia Abnormal ECG Confirmed by RADHA BABCOCK MD ([id number]), online editor PETE SIERRA ([id number]) on 06/21/2017 5:12:47 PM Referred By: Confirmed By:RADHA BABCOCK MD
== END 2017-05-29 13:20 | disposition home or self-care (01) | DRG 871 ==
LOC: ERS 20:14 → 2NO 23:33
PROVIDERS: ADMIT Internal Medicine Infectious Disease; ATTEND Internal Medicine Infectious Disease
DX: A41.9 Sepsis, unspecified organism (principal); R65.21 Severe sepsis with septic shock; A08.39 Other viral enteritis; E23.0 Hypopituitarism; E27.49 Other adrenocortical insufficiency; N50.89 Other specified disorders of the male genital organs; Z87.820 Personal history of traumatic brain injury; T38.0X5A Adverse effect of glucocorticoids and synthetic analogues, initial encounter; E86.0 Dehydration; R42 Dizziness and giddiness; Z79.52 Long term (current) use of systemic steroids; E87.6 Hypokalemia
CPT/HCPCS: 36415; 80053; 81003; 81015; 83605; 83690; 83735; 84439; 84443; 84481; 85007; 85025; 85027; 93005; 93306; 96374; A4216; J0744; J1720

== ENCOUNTER 2017-05-30 22:55 | Emergency (ER) | payer SELFPAY ==
[2017-05-31 02:52] LABS: Hemoglobin 11.3 g/dL (14.0-18.0); Mean Corpuscular Hemoglobin 31.5 pg (27.0-31.0); Mean Corpuscular Volume 92.8 fl (80.0-94.0); Mean Platelet Volume 7.2 fL (7.4-10.4); Platelet Count 297 thou/uL (130-400); RBC Distribution Width 13.3 % (11.5-14.5); White Blood Cell (WBC) Count 14.4 thou/uL (4.8-10.8)
[2017-05-31 02:56] LABS: Bilirubin Negative (Negative); Blood, Urine Negative (Negative); Clarity Clear (Clear); Glucose, Urine (Dipstick) Negative (Negative); Leukocyte Negative (Negative); Nitrite Negative (Negative); Protein, Urine (Dipstick) Negative (Neg-Trace); Urobilinogen 0.2 mg/dL (0.2-1.0)
[2017-05-31 03:04] LABS: ALT (SGPT) 30 U/L (8-55); AST (SGOT) 38 U/L (5-34); Albumin 3.8 g/dL (3.5-5.0); Alkaline Phosphatase 73 U/L (40-150); Anion Gap 11 mmol/L (10-20); BUN (Urea Nitrogen) 13 mg/dL (8.9-20.6); Bilirubin, Total 0.3 mg/dL (0.2-1.2); Calc. Creatinine Clearance 0 mL/min (70-130); Calcium 8.9 mg/dL (7.8-10.44); Carbon Dioxide 27 mmol/L (22-29); Chloride 103 mmol/L (98-107); Estimated GFR-MDRD Greater than 90; Globulin 2.8 g/dL (2.4-3.5); Glucose 101 mg/dL (70-105); Potassium 4.1 mmol/L (3.5-5.1); Protein, Total 6.6 g/dL (6.0-8.3); Sodium 137 mmol/L (136-145)
[2017-05-31 03:07] LABS: Band 2 % (5-11); Lymphocytes 27 % (21-51); MDiff Complete? YES; Monocytes 6 % (0-10); Neutrophil 65 % (42-75)
--- NOTE | 2017-05-31 08:26 | ULT ---
PRELIMINARY REPORT/[facility]/EMERGENCY AFTER HOURS PROCEDURE: EXAM: US Scrotum CLINICAL HISTORY: 26 years old, male; Signs and symptoms; Edema; Patient HX: Pituatary gland damage at age 7, no onset of puberty TECHNIQUE: Real-time ultrasound of the scrotum with color Doppler and image documentation. COMPARISON: No relevant prior studies available. FINDINGS: The testicles are significantly smaller than expected for age, but relatively symmetrical in size. The right testicle measures 19 x 12 x 13 mm. The left testicle measures 17 x 10 x 12 mm. There appears to be prominent scrotal skin thickening/edema bilaterally. Right: No visible intratesticular mass. Duplex Doppler evaluation, with color flow and spectral waveform analysis, demonstrates intratesticul ar arterial and venous blood flow. The right epididymis is also small, but otherwise unremarkable in size and appearance. There is no significant right scrotal fluid. Left: No visible intratesticular mass. Duplex Doppler evaluation, with color flow and spectral waveform analysis, demonstrates intratesticul ar arterial and venous blood flow. The left epididymis is also small, but otherwise unremarkable in size and appearance. There is no significant left scrotal fluid. IMPRESSION: Small testicles bilaterally, details above. No evidence for torsion by Doppler ultrasound. No findings to suggest epididymitis. There appears to be prominent scrotal skin thickening/edema bilaterally. Other details discussed above. Thank you for allowing us to participate in the care of your patient. Dictated and Authenticated by: Kyrie Seth MD 05/31/2017 3:29 AM Central Time ([place] & [place]) FINAL REPORT SONOGRAM SCROTUM: DATE: 05/31/17. TIME: Performed on an emergency basis at 0236 hours. HISTORY: Testicular pain. FINDINGS: Findings agree with the preliminary report from [facility]. There is no sonographic evidence of testicular torsion or mass. Prominent skin thickening is noted bilaterally. POS: [facility]
[2017-06-03 01:06] LABS: Chlamydia by PCR Not Detected (NotDetected); GC by PCR Not Detected (NotDetected)
== END 2017-05-31 06:26 | disposition home or self-care (01) ==
LOC: ERS 22:55
DX: N50.89 Other specified disorders of the male genital organs (principal); Z79.899 Other long term (current) drug therapy
CPT/HCPCS: 36415; 76870; 80053; 81003; 83605; 85025; 87086; 87491; 87591; 93976